=== PATIENT | female | born 1990 | race Caucasian/White ===

== ENCOUNTER 2022-03-06 22:59 | Emergency (ER) | payer BC ==
[~2022-03-06] VITALS: Ht 167.6 cm; Wt 108.9 kg
[2022-03-06 23:17] VITALS: BP 150/81
--- NOTE | 2022-03-06 23:21 | NUR ---
TO LOBBY A/W BED AMBULATORY
--- NOTE | 2022-03-06 23:55 | NUR ---
PT AMBULATES TO BED 11 WITH A STEADY GAIT
[2022-03-07 00:06] LABS: BASOPHILS % (AUTO) 0.3 % (0.0-2.0); EOSINOPHILS # (AUTO) 0.3 K/uL (0-0.4); EOSINOPHILS % (AUTO) 2.7 % (0.0-4.0); HEMATOCRIT 39.2 % (36-48); LYMPHOCYTES # (AUTO) 2.1 K/uL (2.5-16.5); LYMPHOCYTES % (AUTO) 17.6 % (20.5-51.1); MEAN CORPUSCULAR HEMOGLOBIN 29 pg (27-31); MEAN CORPUSCULAR HGB CONC 33 g/dL (33-37); MEAN CORPUSCULAR VOLUME 86.7 fL (80-94); MONOCYTES # (AUTO) 0.9 K/uL (0.8-1.0); MONOCYTES % (AUTO) 7.2 % (1.7-9.3); NEUTROPHILS # (AUTO) 8.5 K/uL (1.8-7.7); NEUTROPHILS % (AUTO) 72.2 % (42.2-75.2); PLATELET COUNT (AUTO) 292 K/uL (140-450); RED BLOOD CELL COUNT(AUTO) 4.52 MIL/uL (4.20-5.40); RED CELL DISTRIBUTION WIDTH 14.4 % (11.6-13.7); WHITE BLOOD COUNT (AUTO) 11.8 K/uL (4.8-10.8)
[2022-03-07 00:11] LABS: APPEARANCE,URINE CLEAR (CLEAR); BILIRUBIN,URINE NEGATIVE (NEGATIVE); BLOOD, URINE 3+ (NEGATIVE); COLOR,URINE YELLOW (YELLOW); LEUKOCYTE ESTERASE ,URINE NEGATIVE (NEGATIVE); NITRITE, URINE NEGATIVE (NEGATIVE); PH,URINE 6.5 (5.0-9.0); UGLUCOSE NEGATIVE (NEGATIVE)
[2022-03-07 00:26] LABS: RBC,URINE 0-5 /HPF (0-5); WBC,URINE 0-5 /HPF (0-5)
--- NOTE | 2022-03-07 00:31 | NUR ---
Ultrasound at bedside.
--- NOTE | 2022-03-07 01:19 | NUR ---
Pt appears to be resting comfortably at this time. No s/s discomfort.
--- NOTE | 2022-03-07 02:04 | NUR ---
Dr. Barbour at bedside explaining tx plan and results
[2022-03-07] MEDS ORDERED: NITR100C7 PO (02:18)
[2022-03-07 02:37] VITALS: BP 150/81
--- NOTE | 2022-03-07 02:38 | NUR ---
Patient discharged with v/s stable. Written and verbal after care instructions given and explained. Pt d/c with prescription for macrobid. Instructions given on how to [facility] medical records if needed as per pt request. Patient verbalized understanding. Ambulates with steady gait. All questions addressed prior to discharge. Advised to follow up with PMD.
== END 2022-03-07 02:38 | disposition home or self-care (01) ==
LOC: MED 22:59
DX: O20.0 Threatened abortion (principal); Z3A.01 Less than 8 weeks gestation of pregnancy
CPT/HCPCS: 36415; 76817; 81001; 81025; 84702; 85025; 86900; 86901; 99284; Q0092

== ENCOUNTER 2022-09-03 20:18 | Inpatient (IN) | payer BC, OTHER ==
[~2022-09-03] VITALS: Ht 167.6 cm; Wt 95.7 kg
[~2022-09-03 20:18] MED LIST: NITR100C7 PO
[2022-09-03 20:48] VITALS: BP 124/67; PULSE 75; RESP 18; TEMP 98
[2022-09-03] MEDS: LACTATED RINGERS 1,000 ML IV SCH (21:20)
[2022-09-03] MEDS ORDERED: MAG SULF 2000 MG/WATER PREMIX 50 ML IV ONE (21:20)
[2022-09-03] MEDS ORDERED: MAG SULF 2000 MG/WATER PREMIX 100 ML IV ONE (21:20)
[2022-09-03] MEDS ORDERED: TERBUTALINE 1 MG/ML VIAL SUBQ SCH (21:20)
[2022-09-03] MEDS ORDERED: BETAMETH ACET/BETAMETH NA PH 30 MG/5 ML VIAL IM ONE (21:20)
[2022-09-03 22:01] LABS: BASOPHILS % (AUTO) 0.2 % (0.0-2.0); EOSINOPHILS # (AUTO) 0.1 K/uL (0-0.4); EOSINOPHILS % (AUTO) 1.2 % (0.0-4.0); HEMOGLOBIN 10.6 g/dL (12.0-16.0); LYMPHOCYTES # (AUTO) 1.8 K/uL (2.5-16.5); LYMPHOCYTES % (AUTO) 15.3 % (20.5-51.1); MEAN CORPUSCULAR HEMOGLOBIN 28 pg (27-31); MEAN CORPUSCULAR HGB CONC 34 g/dL (33-37); MEAN CORPUSCULAR VOLUME 82.3 fL (80-94); MONOCYTES # (AUTO) 0.8 K/uL (0.8-1.0); MONOCYTES % (AUTO) 6.6 % (1.7-9.3); NEUTROPHILS # (AUTO) 9.1 K/uL (1.8-7.7); NEUTROPHILS % (AUTO) 76.7 % (42.2-75.2); PLATELET COUNT (AUTO) 328 K/uL (140-450); RED BLOOD CELL COUNT(AUTO) 3.76 MIL/uL (4.20-5.40); RED CELL DISTRIBUTION WIDTH 13.7 % (11.6-13.7); WHITE BLOOD COUNT (AUTO) 11.8 K/uL (4.8-10.8)
[2022-09-03 22:17] LABS: ALBUMIN 2.6 g/dL (3.4-5.0); ANION GAP 15.3 (8-16); CARBON DIOXIDE 22.2 mmol/L (21-32); CREATININE 0.6 mg/dL (0.6-1.3); MAGNESIUM 1.8 mg/dL (1.8-2.4); POTASSIUM 3.5 mmol/L (3.5-5.1); TOTAL BILIRUBIN 0.3 mg/dL (0.0-1.0)
[2022-09-03] MEDS: MAG SULF 20 GM/H2O PREMIX DRIP 500 ML IV PRN (23:47)
[2022-09-04] MEDS: LACTATED RINGERS 1,000 ML IV SCH ×2 (06:36→18:46)
--- NOTE | 2022-09-04 08:38 | NUR ---
PATIENT HAS BEEN SCREENED AND CATEGORIZED LOW NUTRITION RISK. PATIENT WILL BE SEEN WITHIN 7 DAYS OF ADMISSION. 09/10/[address]
[2022-09-04] MEDS: ECOTRIN 81 MG TABEC PO SCH (08:45)
[2022-09-04] MEDS: NIFEdipine 90 MG TABER PO SCH (08:46)
[2022-09-04] MEDS: MAG SULF 20 GM/H2O PREMIX DRIP 500 ML IV PRN ×2 (10:08→19:53)
[2022-09-04] MEDS ORDERED: BETAMETH ACET/BETAMETH NA PH 30 MG/5 ML VIAL IM SCH (22:30)
[2022-09-05] MEDS ORDERED: BETAMETH ACET/BETAMETH NA PH 30 MG/5 ML VIAL IM ONE (00:24)
[2022-09-05] MEDS ORDERED: NIFEdipine 10 MG CAPLF PO SCH (00:40)
[2022-09-05] MEDS: MAG SULF 20 GM/H2O PREMIX DRIP 500 ML IV PRN (05:55)
[2022-09-05] MEDS: LACTATED RINGERS 1,000 ML IV SCH (07:33)
[2022-09-05] MEDS: ECOTRIN 81 MG TABEC PO SCH (08:54)
[2022-09-05] MEDS: NIFEdipine 90 MG TABER PO SCH (08:54)
[2022-09-05] MEDS ORDERED: NIFE90TE3 PO (15:19)
[2022-09-05] MEDS ORDERED: TRA200 PO (15:19)
== END 2022-09-05 16:21 | disposition home or self-care (01) | DRG 786 ==
LOC: MLD 20:18 → OBSVTOIN 21:21 → MLD 21:41
PROVIDERS: ADMIT Obstetrics & Gynecology; ATTEND Obstetrics & Gynecology
PROC: 10D00Z1 Extraction of Products of Conception, Low, Open Approach (ICD-10-PCS; principal; 2022-09-05)
DX: O36.4XX0 Maternal care for intrauterine death, not applicable or unspecified (principal); O45.93 Premature separation of placenta, unspecified, third trimester; O99.02 Anemia complicating childbirth; O13.4 Gestational [pregnancy-induced] hypertension without significant proteinuria, complicating childbirth; Z20.822 Contact with and (suspected) exposure to COVID-19; D64.9 Anemia, unspecified; Z37.1 Single stillbirth; Z3A.31 31 weeks gestation of pregnancy
CPT/HCPCS: 36415; 51702; 76805; 76817; 80053; 83735; 85025; 85384; 86886; 86900; 86901; J0702; J3105; J3475; J7120; Q0092

== ENCOUNTER 2022-10-16 20:51 | Inpatient (IN) | payer OTHER ==
[~2022-10-16] VITALS: Ht 167.6 cm; Wt 96.6 kg
[~2022-10-16 20:51] MED LIST changes: +NIFE90TE3 PO; -NITR100C7 PO; +TRA200 PO
[2022-10-16 21:16] VITALS: BP 127/68; PULSE 75; RESP 18; TEMP 98.1
[2022-10-16] MEDS ORDERED: OXYTOCIN 20 UNITS in LACTATED RINGERS 1,000 ML IV SCH (21:30)
[2022-10-16] MEDS ORDERED: AMPICILLIN 2,000 MG in NACL 0.9% MINI-BAG PLUS 100 ML IV SCH (21:30)
[2022-10-16] MEDS ORDERED: ONDANSETRON 4 MG/2 ML VIAL IVP PRN (21:30)
[2022-10-16 22:00] LABS: BASOPHILS % (AUTO) 0.4 % (0.0-2.0); EOSINOPHILS # (AUTO) 0.1 K/uL (0-0.4); HEMATOCRIT 31.8 % (36-48); HEMOGLOBIN 10.6 g/dL (12.0-16.0); LYMPHOCYTES # (AUTO) 2.1 K/uL (2.5-16.5); LYMPHOCYTES % (AUTO) 17.2 % (20.5-51.1); MEAN CORPUSCULAR HEMOGLOBIN 27 pg (27-31); MEAN CORPUSCULAR HGB CONC 33 g/dL (33-37); MEAN CORPUSCULAR VOLUME 80.7 fL (80-94); MONOCYTES % (AUTO) 7.8 % (1.7-9.3); NEUTROPHILS # (AUTO) 9.1 K/uL (1.8-7.7); NEUTROPHILS % (AUTO) 73.6 % (42.2-75.2); PLATELET COUNT (AUTO) 328 K/uL (140-450); RED BLOOD CELL COUNT(AUTO) 3.94 MIL/uL (4.20-5.40); RED CELL DISTRIBUTION WIDTH 15.5 % (11.6-13.7); WHITE BLOOD COUNT (AUTO) 12.4 K/uL (4.8-10.8)
[2022-10-16 22:03] LABS: APPEARANCE,URINE CLEAR (CLEAR); BILIRUBIN,URINE NEGATIVE (NEGATIVE); BLOOD, URINE NEGATIVE (NEGATIVE); COLOR,URINE YELLOW (YELLOW); LEUKOCYTE ESTERASE ,URINE NEGATIVE (NEGATIVE); NITRITE, URINE NEGATIVE (NEGATIVE); PROTEIN,URINE NEGATIVE (NEGATIVE); UGLUCOSE TRACE (NEGATIVE); UROBILINOGEN,URINE 0.2 EU/dL (0.2 - 1)
[2022-10-16 22:12] LABS: AMPHETAMINE, URINE NEGATIVE ng/ml (NEG <=1000); BARBITURATE, URINE NEGATIVE ng/ml (NEG <=200); BENZODIAZEPINE, URINE NEGATIVE ng/mL (NEG <=200); CANNABINOID, URINE NEGATIVE ng/mL (NEG <=50); COCAINE, URINE NEGATIVE ng/mL (NEG <=300); OPIATE, URINE NEGATIVE ng/mL (NEG <=2000); PHENCYCLIDINE SCREEN,URINE NEGATIVE ng/mL (NEG <=25)
[2022-10-16 22:13] LABS: ALBUMIN 2.5 g/dL (3.4-5.0); ANION GAP 14.4 (8-16); CALCIUM 8.6 mg/dL (8.5-10.1); CARBON DIOXIDE 23.1 mmol/L (21-32); CREATININE 0.7 mg/dL (0.6-1.3); POTASSIUM 3.5 mmol/L (3.5-5.1); TOTAL BILIRUBIN 0.3 mg/dL (0.0-1.0); TOTAL PROTEIN, SERUM 6.5 g/dL (6.4-8.2)
[2022-10-16] MEDS: LACTATED RINGERS 1,000 ML IV SCH (22:17)
[2022-10-16 22:24] LABS: INR 0.93 (0.8-1.2); PARTIAL THROMBOPLASTIN TIME 24.6 secs (22-35.6); PROTHROMBIN TIME 9.8 secs (10.8-13.4)
[2022-10-17] MEDS ORDERED: AMPICILLIN 1,000 MG in NACL 0.9% MINI-BAG PLUS 50 ML IV SCH ×2
[2022-10-17] MEDS: MISOPROSTOL 25 MCG TAB VG SCH ×4 (00:03→22:09)
[2022-10-17] MEDS: LACTATED RINGERS 1,000 ML IV SCH ×3 (06:04→22:11)
[2022-10-17] MEDS ORDERED: NIFEdipine 10 MG CAPLF PO SCH (09:00)
[2022-10-17] MEDS: LABETALOL 200 MG TAB PO SCH ×2 (09:08→21:02)
[2022-10-17] MEDS: NIFEdipine 90 MG TABER PO SCH (09:44)
[2022-10-18] MEDS: MORPHINE SULFATE 10 MG/ML VIAL IVP PRN ×2 (05:18→10:21)
[2022-10-18] MEDS: LACTATED RINGERS 1,000 ML IV SCH (07:24)
[2022-10-18] MEDS ORDERED: OXYTOCIN 20 UNITS/LR PREMIX 1,000 ML IV ONE (07:40)
[2022-10-18] MEDS: NIFEdipine 90 MG TABER PO SCH (08:19)
[2022-10-18] MEDS: LABETALOL 200 MG TAB PO SCH ×2 (08:19→21:08)
[2022-10-18] MEDS ORDERED: NIFEdipine 90 MG TABER PO SCH (09:00)
[2022-10-18 10:21] VITALS: RESP 18; O2SAT 97
[2022-10-18] MEDS ORDERED: hydrALAZINE 20 MG/ML VIAL IVP PRN (10:35)
[2022-10-18 11:47] VITALS: BP 175/84; PULSE 79
[2022-10-18] MEDS ORDERED: LIDOCAINE 1% 500 MG/ 50 ML VIAL INJ PRN (12:10)
[2022-10-18] MEDS ORDERED: LIDOCAINE 1% 500 MG/50 ML VIAL ONE (12:21)
[2022-10-18] MEDS ORDERED: IBUPROFEN 800 MG TAB PO PRN ×2 (18:45→19:25)
[2022-10-18] MEDS ORDERED: IBUPROFEN 600 MG TAB PO PRN ×2 (18:45→19:25)
[2022-10-18] MEDS ORDERED: ACETAMINOPHEN 325 MG TAB PO PRN (18:45)
[2022-10-18] MEDS ORDERED: BENZOCAINE/MENTHOL 20%-0.5% 60 GM CAN TP PRN (19:25)
[2022-10-18] MEDS ORDERED: METHYLERGONOVINE 0.2 MG TAB PO PRN (19:25)
[2022-10-18] MEDS ORDERED: OXYTOCIN 10 UNITS/ML VIAL IM PRN (19:25)
[2022-10-18] MEDS ORDERED: bisacodyL 5 MG TABEC PO PRN (19:25)
[2022-10-18] MEDS ORDERED: MEASLES, MUMPS, AND RUBELLA 1 VIAL SQVAC ONE (19:25)
[2022-10-18] MEDS ORDERED: METHYLERGONOVINE 0.2 MG/ML AMP IM PRN (19:25)
[2022-10-18] MEDS ORDERED: SIMETHICONE 80 MG TAB.CHEW PO PRN (19:25)
[2022-10-18] MEDS ORDERED: LABETALOL 200 MG TAB PO SCH (21:00)
[2022-10-19 05:16] LABS: HEMOGLOBIN 8.9 g/dL (12.0-16.0)
[2022-10-19 07:59] LABS: RAPID PLASMA REAGIN NON-REACTIVE (Non Reactiv)
[2022-10-19 08:04] LABS: HIV RAPID SCREEN NON-REACTIVE (NON REACTIV)
[2022-10-19] MEDS ORDERED: NIFEdipine 90 MG TABER PO SCH (09:00)
== END 2022-10-19 13:57 | disposition home or self-care (01) | DRG 806 ==
LOC: MLD 20:51 → MFCC 10-18 15:35
PROVIDERS: ADMIT Obstetrics & Gynecology; ATTEND Obstetrics & Gynecology
PROC: 10E0XZZ Delivery of Products of Conception, External Approach (ICD-10-PCS; principal; 2022-10-18)
PROC: 3E0P7VZ Introduction of Hormone into Female Reproductive, Via Natural or Artificial Opening (ICD-10-PCS; 2022-10-18)
PROC: 0HQ9XZZ Repair Perineum Skin, External Approach (ICD-10-PCS; 2022-10-18)
DX: O24.429 Gestational diabetes mellitus in childbirth, unspecified control (principal); O10.92 Unspecified pre-existing hypertension complicating childbirth; Z37.0 Single live birth; O11.4 Pre-existing hypertension with pre-eclampsia, complicating childbirth; Z20.822 Contact with and (suspected) exposure to COVID-19; O70.0 First degree perineal laceration during delivery; Z3A.38 38 weeks gestation of pregnancy
CPT/HCPCS: 36415; 59200; 59409; 76815; 80053; 80305; 81003; 85018; 85025; 85610; 85730; 86592; 86762; 86886; 86900; 86901; 87340; 87653-90; 90715; J0360; J2001; J2270; J2405; J2590; J7120; Q0092